=== PATIENT | male | born 1995 | race Two or more races ===

== ENCOUNTER 2023-04-12 03:05 | Emergency (ER) | payer OTHER ==
[~2023-04-12] VITALS: Ht 160 cm; Wt 49.9 kg
[2023-04-12] MEDS ORDERED: MORGIDOX100 MG (03:19)
[2023-04-12] MEDS ORDERED: CEPHALEXIN500 MG PO (06:43)
[2023-04-12] MEDS ORDERED: SILVADENE20 GM TOP (06:43)
[2023-04-12] MEDS ORDERED: KETO10TA2 PO (06:43)
== END 2023-04-12 07:21 ==
LOC: ER 03:05
DX: S00.93XA Contusion of unspecified part of head, initial encounter (principal); S60.222A Contusion of left hand, initial encounter; S29.011A Strain of muscle and tendon of front wall of thorax, initial encounter; S20.419A Abrasion of unspecified back wall of thorax, initial encounter; V80.010A Animal-rider injured by fall from or being thrown from horse in noncollision accident, initial encounter; Y93.89 Activity, other specified; Y92.89 Other specified places as the place of occurrence of the external cause; Y99.9 Unspecified external cause status